=== PATIENT | female | born 1955 | race Two or more races ===

== ENCOUNTER 2017-04-30 11:36 | Outpatient (CLI) | payer OTHER ==
[~2017-04-30 11:36] MED LIST: ADVAIR 5001 DISK W/1; AMOX1TAB12 PO; CALTRATE 600600 MG; CLONAZEPAM1 MG PO; COLACE100 MG PO; IBUPROFEN800 MG PO; NEURONTIN800 MG PO; ORPH100T PO; PERCOCET 5-3251 EACH PO; SIMVASTATIN5 MG PO; TRAMADOL HCL50 MG PO; VASOTEC2.5 MG PO; VITAMIN D400 UNI2 PO; ZOCOR20 MG; ZYRTEC10 M3 PO; ZYRTEC10 MG
== END 2017-04-30 11:49 | disposition home or self-care (01) ==
LOC: RAD 11:36
DX: M51.36 Other intervertebral disc degeneration, lumbar region (principal); Z98.1 Arthrodesis status

== ENCOUNTER 2017-06-05 12:26 | Outpatient (CLI) | payer OTHER | END 2017-06-05 16:28 | disposition home or self-care (01) | LOC: MAMO-SONO 12:26 | DX: Z12.31 Encounter for screening mammogram for malignant neoplasm of breast (principal); Z87.898 Personal history of other specified conditions; N64.89 Other specified disorders of breast; N60.01 Solitary cyst of right breast; N60.02 Solitary cyst of left breast ==

== ENCOUNTER 2017-10-23 13:39 | Outpatient (CLI) | payer OTHER | END 2017-10-23 14:35 | disposition home or self-care (01) | LOC: NUCLEAR 13:39 | DX: M81.0 Age-related osteoporosis without current pathological fracture (principal) ==

== ENCOUNTER 2017-11-17 14:57 | Emergency (ER) | payer OTHER ==
[~2017-11-17] VITALS: Ht 149.9 cm; Wt 58.1 kg
== END 2017-11-17 19:38 | disposition home or self-care (01) ==
LOC: ER
DX: T78.3XXA Angioneurotic edema, initial encounter (principal); L53.8 Other specified erythematous conditions

== ENCOUNTER 2018-05-26 09:39 | Outpatient (CLI) | payer OTHER | END 2018-05-26 09:45 | disposition home or self-care (01) | LOC: TOM 09:39 | DX: R10.9 Unspecified abdominal pain (principal) ==

== ENCOUNTER → 2018-07-08 | Outpatient (CLI) | payer OTHER | END | disposition home or self-care (01) | LOC: RAD 501 11:15 | DX: M51.36 Other intervertebral disc degeneration, lumbar region (principal); Z98.1 Arthrodesis status ==

== ENCOUNTER 2019-06-14 09:53 | Emergency (ER) | payer OTHER ==
[~2019-06-14] VITALS: Ht 149.9 cm; Wt 49.4 kg
[2019-06-14] MEDS ORDERED: SINGULAIR10 MG (10:03)
== END 2019-06-14 14:48 | disposition home or self-care (01) ==
LOC: ER 09:53
DX: S80.02XA Contusion of left knee, initial encounter (principal); M25.562 Pain in left knee; W18.39XA Other fall on same level, initial encounter; Y93.89 Activity, other specified; Y92.89 Other specified places as the place of occurrence of the external cause; Y99.8 Other external cause status

== ENCOUNTER 2019-09-30 08:40 | Outpatient (CLI) | payer OTHER ==
[~2019-09-30 08:40] MED LIST changes: +SINGULAIR10 MG
== END 2019-09-30 08:48 | disposition home or self-care (01) ==
LOC: RAD 08:40
PROVIDERS: ATTEND Physical Medicine & Rehabilitation
DX: Z12.31 Encounter for screening mammogram for malignant neoplasm of breast (principal); N63.10 Unspecified lump in the right breast, unspecified quadrant; N63.20 Unspecified lump in the left breast, unspecified quadrant; M17.12 Unilateral primary osteoarthritis, left knee

== ENCOUNTER 2019-09-30 09:26 | Outpatient (CLI) | payer OTHER | END 2019-09-30 13:48 | disposition home or self-care (01) | LOC: LAB 09:26 | PROVIDERS: ATTEND Internal Medicine | DX: E78.49 Other hyperlipidemia (principal); I11.9 Hypertensive heart disease without heart failure; I12.9 Hypertensive chronic kidney disease with stage 1 through stage 4 chronic kidney disease, or unspecified chronic kidney disease; J44.9 Chronic obstructive pulmonary disease, unspecified; M54.5 Low back pain; M51.06 Intervertebral disc disorders with myelopathy, lumbar region; M81.0 Age-related osteoporosis without current pathological fracture; Z68.27 Body mass index [BMI] 27.0-27.9, adult; Z87.891 Personal history of nicotine dependence; E11.69 Type 2 diabetes mellitus with other specified complication ==

== ENCOUNTER 2019-11-09 11:40 | Outpatient (CLI) | payer OTHER | END 2019-11-09 12:51 | disposition home or self-care (01) | LOC: MRI 11:40 | PROVIDERS: ATTEND Physical Medicine & Rehabilitation | DX: M17.12 Unilateral primary osteoarthritis, left knee (principal) | CPT/HCPCS: 73718 ==

== ENCOUNTER 2020-08-10 10:13 | Outpatient (CLI) | payer OTHER | END 2020-08-10 10:19 | disposition home or self-care (01) | LOC: TOM 10:13 | PROVIDERS: ATTEND Internal Medicine | DX: G44.001 Cluster headache syndrome, unspecified, intractable (principal) ==

== ENCOUNTER 2020-08-25 14:38 | Outpatient (CLI) | payer OTHER | END 2020-08-25 14:45 | disposition home or self-care (01) | LOC: RAD 14:38 | PROVIDERS: ATTEND Internal Medicine | DX: C90.00 Multiple myeloma not having achieved remission (principal) ==

== ENCOUNTER 2020-09-26 10:42 | Outpatient (CLI) | payer OTHER | END 2020-09-26 15:00 | disposition home or self-care (01) | LOC: LAB 10:42 | PROVIDERS: ATTEND Radiology Diagnostic Radiology | DX: R41.3 Other amnesia (principal); Z51.81 Encounter for therapeutic drug level monitoring ==

== ENCOUNTER → 2020-10-03 | Outpatient (CLI) | payer OTHER | END | disposition home or self-care (01) | LOC: MRI 09:22 | PROVIDERS: ATTEND Neuromusculoskeletal Medicine & OMM | DX: R51.9 Headache, unspecified (principal); R41.3 Other amnesia; M51.26 Other intervertebral disc displacement, lumbar region; M51.36 Other intervertebral disc degeneration, lumbar region | CPT/HCPCS: 70553; 72148 ==

== ENCOUNTER → 2020-11-21 10:17 | Outpatient (CLI) | payer OTHER | END | disposition home or self-care (01) | LOC: LAB 10:17 | PROVIDERS: ATTEND Radiology Diagnostic Radiology | DX: I65.23 Occlusion and stenosis of bilateral carotid arteries (principal) ==

== ENCOUNTER 2020-12-05 09:27 | Outpatient (CLI) | payer OTHER | END 2020-12-05 09:33 | disposition home or self-care (01) | LOC: MRI 09:27 | PROVIDERS: ATTEND Neuromusculoskeletal Medicine & OMM | DX: I65.23 Occlusion and stenosis of bilateral carotid arteries (principal) | CPT/HCPCS: 70549; A9575 ==

== ENCOUNTER 2021-05-28 16:34 | Inpatient (IN) | payer OTHER ==
[~2021-05-28] VITALS: Ht 152.4 cm; Wt 50.8 kg
[2021-05-29] MEDS ORDERED: PREGABALIN75 MG (08:51)
[2021-05-29] MEDS ORDERED: PROCHLORPERAZIN10 MG (08:51)
[2021-05-29] MEDS ORDERED: XARELTO20 M1 (08:51)
[2021-05-29] MEDS ORDERED: PANTOPRAZOLE SO40 MG (08:51)
[2021-05-29] MEDS ORDERED: CLOPIDOGREL BIS75 MG (08:52)
[2021-05-29] MEDS ORDERED: PROAIR HFA8.5 GM (08:52)
[2021-06-03] MEDS ORDERED: PANTOPRAZOLE SO40 MG PO (11:41)
[2021-06-03] MEDS ORDERED: BUPROPION HCL150 M1 PO (11:42)
[2021-06-03] MEDS ORDERED: NICOTINE PATCH1 EACH TD (11:44)
== END 2021-06-03 12:51 | disposition home or self-care (01) | DRG 812 ==
LOC: ER 16:34 → ICU-2 22:52 → ICU 05-31 05:09 → MEDI 06-02 11:48
PROVIDERS: ADMIT Internal Medicine; ATTEND Internal Medicine
PROC: B24BZZZ Ultrasonography of Heart with Aorta (ICD-10-PCS; 2021-05-28)
PROC: 30233N1 Transfusion of Nonautologous Red Blood Cells into Peripheral Vein, Percutaneous Approach (ICD-10-PCS; principal; 2021-05-29)
PROC: 0DJ08ZZ Inspection of Upper Intestinal Tract, Via Natural or Artificial Opening Endoscopic (ICD-10-PCS; 2021-05-30)
PROC: 0DJD8ZZ Inspection of Lower Intestinal Tract, Via Natural or Artificial Opening Endoscopic (ICD-10-PCS; 2021-06-01)
PROC: 4A12X4Z Monitoring of Cardiac Electrical Activity, External Approach (ICD-10-PCS; 2021-06-02)
DX: D64.9 Anemia, unspecified (principal); K62.5 Hemorrhage of anus and rectum; K26.9 Duodenal ulcer, unspecified as acute or chronic, without hemorrhage or perforation; R10.13 Epigastric pain; I25.10 Atherosclerotic heart disease of native coronary artery without angina pectoris; I77.9 Disorder of arteries and arterioles, unspecified; I10 Essential (primary) hypertension; I73.89 Other specified peripheral vascular diseases; J44.9 Chronic obstructive pulmonary disease, unspecified; M51.37 Other intervertebral disc degeneration, lumbosacral region; Z20.822 Contact with and (suspected) exposure to COVID-19; Z79.01 Long term (current) use of anticoagulants; Z72.0 Tobacco use

== ENCOUNTER 2021-10-18 14:10 | Outpatient (CLI) | payer OTHER ==
[~2021-10-18 14:10] MED LIST changes: +BUPROPION HCL150 M1 PO; +CLOPIDOGREL BIS75 MG; +NICOTINE PATCH1 EACH TD; +PANTOPRAZOLE SO40 MG; +PANTOPRAZOLE SO40 MG PO; +PREGABALIN75 MG; +PROAIR HFA8.5 GM; +PROCHLORPERAZIN10 MG; +XARELTO20 M1
== END 2021-10-18 14:25 | disposition home or self-care (01) ==
LOC: PPH VACUNA 14:10
PROVIDERS: ATTEND Emergency Medicine Pediatric Emergency Medicine
DX: Z23 Encounter for immunization (principal)

== ENCOUNTER 2022-01-05 08:47 | Outpatient (CLI) | payer OTHER | END 2022-01-05 08:52 | disposition home or self-care (01) | LOC: SONOGRAMA 08:47 | PROVIDERS: ATTEND Internal Medicine | DX: M25.512 Pain in left shoulder (principal) ==

== ENCOUNTER 2022-01-08 08:55 | Outpatient (CLI) | payer OTHER | END 2022-01-08 08:57 | disposition home or self-care (01) | LOC: NUCLEAR 08:55 | PROVIDERS: ATTEND Internal Medicine | DX: I82.622 Acute embolism and thrombosis of deep veins of left upper extremity (principal) ==

== ENCOUNTER 2022-06-15 10:12 | Outpatient (CLI) | payer OTHER | END 2022-06-15 10:13 | disposition home or self-care (01) | LOC: NUCLEAR 10:12 | PROVIDERS: ATTEND Internal Medicine | DX: I73.9 Peripheral vascular disease, unspecified (principal) ==

== ENCOUNTER 2023-03-11 07:27 | Outpatient (CLI) | payer OTHER | END 2023-03-11 13:28 | disposition home or self-care (01) | LOC: TOM 07:27 | PROVIDERS: ATTEND Internal Medicine | DX: I70.213 Atherosclerosis of native arteries of extremities with intermittent claudication, bilateral legs (principal); E78.2 Mixed hyperlipidemia; I70.203 Unspecified atherosclerosis of native arteries of extremities, bilateral legs; I80.203 Phlebitis and thrombophlebitis of unspecified deep vessels of lower extremities, bilateral; E34.0 Carcinoid syndrome; G43.009 Migraine without aura, not intractable, without status migrainosus; E11.69 Type 2 diabetes mellitus with other specified complication; M81.0 Age-related osteoporosis without current pathological fracture; N18.2 Chronic kidney disease, stage 2 (mild); M06.4 Inflammatory polyarthropathy; J44.9 Chronic obstructive pulmonary disease, unspecified; M51.37 Other intervertebral disc degeneration, lumbosacral region; I11.9 Hypertensive heart disease without heart failure; M75.32 Calcific tendinitis of left shoulder; M65.812 Other synovitis and tenosynovitis, left shoulder; Z98.890 Other specified postprocedural states; K92.2 Gastrointestinal hemorrhage, unspecified; I65.23 Occlusion and stenosis of bilateral carotid arteries; I25.10 Atherosclerotic heart disease of native coronary artery without angina pectoris; J84.10 Pulmonary fibrosis, unspecified; I12.9 Hypertensive chronic kidney disease with stage 1 through stage 4 chronic kidney disease, or unspecified chronic kidney disease; N18.31 Chronic kidney disease, stage 3a; H25.11 Age-related nuclear cataract, right eye; R92.1 Mammographic calcification found on diagnostic imaging of breast; R97.0 Elevated carcinoembryonic antigen [CEA] | CPT/HCPCS: 74177; Q9965 ==

== ENCOUNTER → 2023-06-05 13:07 | Outpatient (CLI) | payer OTHER | END | disposition home or self-care (01) | LOC: NUCLEAR 13:07 | PROVIDERS: ATTEND Internal Medicine | DX: M81.0 Age-related osteoporosis without current pathological fracture (principal) ==

== ENCOUNTER 2024-02-19 12:50 | Outpatient (CLI) | payer OTHER | END 2024-02-19 13:00 | disposition home or self-care (01) | LOC: MAMO-SONO 12:50 | PROVIDERS: ATTEND Internal Medicine | DX: N64.4 Mastodynia (principal); R92.8 Other abnormal and inconclusive findings on diagnostic imaging of breast; Z12.31 Encounter for screening mammogram for malignant neoplasm of breast ==

== ENCOUNTER 2024-03-16 12:38 | Outpatient (CLI) | payer OTHER ==
[2024-03-16 14:28] LABS: CREATININE SERUM 1.47 mg/dL (0.55-1.02)
== END 2024-03-16 12:40 | disposition home or self-care (01) ==
LOC: LAB 12:38
PROVIDERS: ATTEND Radiology Diagnostic Radiology
DX: Z12.2 Encounter for screening for malignant neoplasm of respiratory organs (principal)

== ENCOUNTER 2024-03-23 07:17 | Outpatient (CLI) | payer OTHER | END 2024-03-23 07:23 | disposition home or self-care (01) | LOC: TOM 07:17 | PROVIDERS: ATTEND Internal Medicine | DX: Z12.2 Encounter for screening for malignant neoplasm of respiratory organs (principal); F17.210 Nicotine dependence, cigarettes, uncomplicated | CPT/HCPCS: 71260; Q9965 ==

== ENCOUNTER 2024-08-26 11:39 | Outpatient (CLI) | payer OTHER | END 2024-08-26 11:46 | disposition home or self-care (01) | LOC: TOM 11:39 | PROVIDERS: ATTEND Internal Medicine Pulmonary Disease | DX: J44.9 Chronic obstructive pulmonary disease, unspecified (principal); J84.9 Interstitial pulmonary disease, unspecified; H90.0 Conductive hearing loss, bilateral | CPT/HCPCS: 70551 ==

== ENCOUNTER 2024-09-05 08:54 | Inpatient (IN) | payer OTHER ==
[~2024-09-05] VITALS: Ht 152.4 cm; Wt 58.1 kg
--- NOTE | 2024-09-05 09:40 | NUR ---
PTE ALERTA Y ORIENTADA X3. REFIERE QUE ESTABA ESTA MANANA EN EL SUPERMERCADO REFIERE EMILIO PRESENTADO MAREOS Y PALPITACIONES. SE OSBALDO SV SPO2 91%, SE REALIZA EK EL CUAL SE PRESENTA A QUIEN ORDENA UBICAR EN LANCE 13 CONECTADA A MONITOR CARDIACO Y OXIMETRIA DE PULSO CONTINUA
[2024-09-05 10:39] LABS: BASO % 0.3 % (0.1-1.2); EOS # 0.01 (0.04-0.54); EOS % 0.1 % (0.7-7.0); HEMATOCRIT 37.1 % (34.1-44.9); HEMOGLOBIN 11.6 g/dL (11.2-15.7); LYMPH # 0.46 (1.18-3.74); LYMPH % 2.8 % (19.3-53.1); MEAN CORPUSCULAR HEMOGLOBIN 24.7 pg (25.6-32.2); MONO # 0.88 (0.24-0.82); MONO % 5.3 % (4.7-12.5); NEUT # 15.07 (1.56-6.13); NEUT % 90.7 % (34.0-71.1); PLATELET COUNT 229 K/uL (163-369)
[2024-09-05 11:01] LABS: INFLUENZA A AG NEGATIVE (NEGATIVE); INFLUENZA B AG NEGATIVE (NEGATIVE)
--- NOTE | 2024-09-05 11:09 | NUR ---
SE ORIENTA A PTE SOBRE TX MEDICO EL MISMO INDICA ENTENDER Y ACEPTAR, SE OSBALDO MUESTRAS DE LAB JOAO ORDEN MEDICA BAJO MEDIDAS ASEPTICAS.
[2024-09-05 11:25] LABS: ALBUMIN 3.6 gm/dL (3.4-5.0); BILIRUBIN TOTAL 0.47 mg/dL (0.3-1.2); CALCIUM 8.5 mg/dL (8.5-10.1); CREATININE SERUM 1.4 mg/dL (0.55-1.02); GFR 37.07; GLOBULINA 4.4 G/DL (2.4-3.5); POTASSIUM 4.65 mEq/L (3.5-5.1)
[2024-09-05 13:06] LABS: COVID-19 AG NEGATIVE (NEGATIVE)
[2024-09-05 16:02] LABS: BASO % 0.3 % (0.1-1.2); EOS # 0.02 (0.04-0.54); EOS % 0.1 % (0.7-7.0); HEMATOCRIT 35.7 % (34.1-44.9); HEMOGLOBIN 11.3 g/dL (11.2-15.7); LYMPH # 1.56 (1.18-3.74); LYMPH % 7.5 % (19.3-53.1); MEAN CORPUSCULAR HEMOGLOBIN 25.3 pg (25.6-32.2); MONO # 1.25 (0.24-0.82); NEUT # 17.83 (1.56-6.13); NEUT % 85.3 % (34.0-71.1); PLATELET COUNT 248 K/uL (163-369); RED BLOOD COUNT 4.47 M/uL (3.93-5.22)
[2024-09-05 17:20] LABS: PH,URINE 5.5 (5.0-8.0); URINE APPEARANCE Clear; URINE BACTERIA 315.7 uL (0.0-1933); URINE BILIRRUBIN Negative (NEGATIVE); URINE BLOOD Negative; URINE COLOR Yellow; URINE EPITHELIAL CELLS 12.9 uL (0.0-38.8); URINE GLUCOSE Negative (NEGATIVE); URINE KETONE Negative (NEGATIVE); URINE LEUKOCYTE Moderate; URINE NITRATE Negative; URINE PROTEIN Trace (NEGATIVE); URINE UROBILINOGEN 0.2 E.U./dl; URINE WBC 118.2 uL (0.0-23.2)
[2024-09-05 17:26] LABS: URINE CAST 0.29 uL (0.0-1.40); URINE RBC 0.8 uL (0.0-20.8)
[2024-09-05] MEDS ORDERED: CEFTRIAXONE SODIUM 1,000 MG VIAL IV ONE (18:15)
[2024-09-05] MEDS ORDERED: CEFTRIAXONE SODIUM 1,000 MG VIAL ONE (18:20)
[2024-09-05] MEDS ORDERED: IPRATROPIUM BROMIDE 0.5 MG/2.5 ML AMPUL.NEB IH SCH (19:35)
[2024-09-05] MEDS ORDERED: MONTELUKAST SODIUM 10 MG TABLET PO SCH (19:39)
[2024-09-05] MEDS ORDERED: CEFTRIAXONE SODIUM 2,000 MG in 0.9 % SODIUM CHLORIDE 100 ML IV SCH (19:39)
[2024-09-05] MEDS ORDERED: GABAPENTIN 800 MG TABLET PO SCH (19:40)
[2024-09-05] MEDS ORDERED: 0.9 % SODIUM CHLORIDE 1,000 ML IV SCH (19:45)
[2024-09-05] MEDS ORDERED: ONDANSETRON HCL 4 MG in 0.9 % SODIUM CHLORIDE 50 ML IV PRN (19:45)
[2024-09-05] MEDS ORDERED: ACETAMINOPHEN 500 MG GEL..CAP PO PRN (19:45)
[2024-09-05] MEDS ORDERED: LEVALBUTEROL HCL 1.25 MG/3 ML SOLUTION IH SCH (19:50)
[2024-09-05] MEDS ORDERED: METHYLPREDNISOLONE SOD SUCC 125 MG VIAL IV ONE (20:00)
[2024-09-05 22:13] LABS: ABG PH 7.395 (7.35-7.45)
[2024-09-05 22:14] LABS: ABG PO2 72.8 mmHg (80-100); ABG pCO2 38.2 mmHg (35-45); BASE EXCESS -2.6 mmol/l; BICARBONATE 21.7 mmol/l (23-25); SaO2 94.2 %; Tco2 22.8 mmol/l; allen test SATISFACTORY; mode ROOM AIR; o2 21 %; puncture site RADIAL LEFT
[2024-09-06 00:32] LABS: INR 1.04; PARTIAL THROMBOPLASTIN TIME 30.8 SECONDS (22.0-34.0); PROTHROMBIN TIME 11.3 SECONDS (9.0-11.5)
[2024-09-06 00:36] LABS: MAGNESIUM 1.9 mg/dL (1.8-2.4); PHOSPHOROUS 2.8 mg/dL (2.5-4.9)
[2024-09-06 00:42] LABS: C-REACTIVE PROTEIN 11.7 MG/DL (0.00-0.29)
[2024-09-06 01:37] VITALS: BP 130/80
[2024-09-06] MEDS ORDERED: BUPROPION HCL 150 MG TABLET.SA PO SCH (09:00)
[2024-09-06] MEDS ORDERED: BUDESONIDE 0.5 MG/2 ML AMPUL.NEB IH SCH (09:00)
[2024-09-06] MEDS ORDERED: ENOXAPARIN SODIUM 40 MG/0.4 ML SYRINGE SUBCUTANEO SCH (09:00)
[2024-09-06] MEDS ORDERED: FAMOTIDINE/PF 20 MG in 0.9 % SODIUM CHLORIDE 8 ML IV PUSH SCH (09:00)
[2024-09-06 09:04] VITALS: BP 147/85
[2024-09-06 17:00] VITALS: BP 146/61; O2SAT 100
[2024-09-06] MEDS ORDERED: SIMVASTATIN 10 MG TABLET PO SCH (17:00)
[2024-09-07 01:53] VITALS: BP 136/78; O2SAT 99
[2024-09-07] MEDS ORDERED: BENZONATATE 100 MG CAPSULE PO PRN (08:30)
[2024-09-07 08:34] LABS: BASO % 0.4 % (0.1-1.2); EOS % 0.9 % (0.7-7.0); HEMATOCRIT 32.9 % (34.1-44.9); HEMOGLOBIN 10.2 g/dL (11.2-15.7); LYMPH # 2.59 (1.18-3.74); LYMPH % 22.6 % (19.3-53.1); MEAN CORPUSCULAR HEMOGLOBIN 25.1 pg (25.6-32.2); MONO # 0.96 (0.24-0.82); MONO % 8.4 % (4.7-12.5); NEUT # 7.69 (1.56-6.13); NEUT % 67.2 % (34.0-71.1); PLATELET COUNT 165 K/uL (163-369); RED BLOOD COUNT 4.06 M/uL (3.93-5.22); RED CELL DISTRIBUTION WIDTH 16.2 % (11.6-14.4)
[2024-09-07 08:56] LABS: ALBUMIN 2.9 gm/dL (3.4-5.0); BILIRUBIN TOTAL 0.19 mg/dL (0.3-1.2); CALCIUM 8.4 mg/dL (8.5-10.1); CREATININE SERUM 0.98 mg/dL (0.55-1.02); GFR 55.94; GLOBULINA 3.8 G/DL (2.4-3.5); MAGNESIUM 1.9 mg/dL (1.8-2.4); POTASSIUM 5.48 mEq/L (3.5-5.1); TOTAL PROTEIN 6.7 gm/dL (6.4-8.2)
[2024-09-07 08:57] LABS: ERYTHROCYTE SEDIMENTATION RATE 48 mm/hr (0-30)
[2024-09-07 09:07] LABS: C-REACTIVE PROTEIN 8.83 MG/DL (0.00-0.29)
[2024-09-07 09:14] VITALS: BP 147/65; O2SAT 98
[2024-09-07 16:55] VITALS: BP 158/80; O2SAT 96
[2024-09-08 00:58] VITALS: BP 158/80
[2024-09-08 09:17] VITALS: BP 160/72; O2SAT 94
[2024-09-08 09:38] LABS: CREATININE SERUM 0.83 mg/dL (0.55-1.02); GFR 67.77; MAGNESIUM 1.9 mg/dL (1.8-2.4); POTASSIUM 4.89 mEq/L (3.5-5.1)
[2024-09-08] MEDS ORDERED: SIMVASTATIN10 MG PO (12:22)
[2024-09-08] MEDS ORDERED: WELLBUTRIN SR150 MG PO (12:22)
[2024-09-08] MEDS ORDERED: GABAPENTIN800 MG PO (12:23)
[2024-09-08] MEDS ORDERED: INTESTINEX680 M1 PO (12:23)
[2024-09-08] MEDS ORDERED: MONTELUKAST SOD10 MG PO (12:23)
[2024-09-08] MEDS ORDERED: LEVOFLOXACIN750 MG PO (12:23)
[2024-09-09] MEDS ORDERED: FAMOtidine 20 MG TABLET PO SCH (09:00)
== END 2024-09-08 13:30 | disposition home or self-care (01) | DRG 690 ==
LOC: ER 08:56 → MEDJ 21:43
PROVIDERS: Emergency Medicine; General Practice; Internal Medicine; ADMIT Internal Medicine; ATTEND Internal Medicine
PROC: 3E0F7GC Introduction of Other Therapeutic Substance into Respiratory Tract, Via Natural or Artificial Opening (ICD-10-PCS; principal; 2024-09-05)
DX: N39.0 Urinary tract infection, site not specified (principal); N17.9 Acute kidney failure, unspecified; J84.10 Pulmonary fibrosis, unspecified; D72.829 Elevated white blood cell count, unspecified; R09.02 Hypoxemia; J44.9 Chronic obstructive pulmonary disease, unspecified; I12.9 Hypertensive chronic kidney disease with stage 1 through stage 4 chronic kidney disease, or unspecified chronic kidney disease; N18.9 Chronic kidney disease, unspecified

== ENCOUNTER 2024-11-28 16:38 | Inpatient (IN) | payer OTHER ==
[~2024-11-28] VITALS: Ht 152.4 cm; Wt 54.9 kg
[~2024-11-28 16:38] MED LIST changes: +GABAPENTIN800 MG PO; +INTESTINEX680 M1 PO; +LEVOFLOXACIN750 MG PO; +MONTELUKAST SOD10 MG PO; +SIMVASTATIN10 MG PO; +WELLBUTRIN SR150 MG PO
[2024-11-28] MEDS ORDERED: IPRATROPIUM/ALBUTEROL SULFATE 3 ML AMPUL.NEB IH SCH (17:45)
[2024-11-28] MEDS ORDERED: METHYLPREDNISOLONE SOD SUCC 125 MG VIAL IV STA (17:46)
[2024-11-28] MEDS ORDERED: 0.9 % SODIUM CHLORIDE 1,000 ML IV STA (17:49)
[2024-11-28 18:10] LABS: BASO % 0.7 % (0.1-1.2); EOS # 0.02 (0.04-0.54); EOS % 0.2 % (0.7-7.0); LYMPH # 0.87 (1.18-3.74); LYMPH % 7.1 % (19.3-53.1); MEAN PLATELET VOLUME 9.60 fl (9.4-12.4); MONO # 1.03 (0.24-0.82); MONO % 8.4 % (4.7-12.5); NEUT # 10.25 (1.56-6.13); NEUT % 83.2 % (34.0-71.1); RED CELL DISTRIBUTION WIDTH 17.2 % (11.6-14.4)
[2024-11-28 18:27] LABS: COVID-19 AG POSITIVE (NEGATIVE)
[2024-11-28 18:45] LABS: URINE APPEARANCE Clear; URINE BILIRRUBIN Negative (NEGATIVE); URINE BLOOD Trace; URINE COLOR Yellow; URINE KETONE Negative (NEGATIVE); URINE LEUKOCYTE Negative; URINE NITRATE Negative; URINE UROBILINOGEN 0.2 E.U./dl
[2024-11-28 18:49] LABS: URINE BACTERIA 164.4 uL (0.0-1933); URINE EPITHELIAL CELLS 21.3 uL (0.0-38.8); URINE RBC 5.5 uL (0.0-20.8); URINE WBC 9.0 uL (0.0-23.2)
[2024-11-28 19:16] LABS: INR 1.01
[2024-11-28 19:23] LABS: ALT/SGPT 25.0 U/L (12-78); AST/SGOT 31.0 U/L (15-37); BILIRUBIN TOTAL 0.4 mg/dL (0.3-1.2); BUN CREA RATIO 20.0 (7.0-25.0); CREATININE SERUM 0.89 mg/dL (0.55-1.02); GFR 62.52; GLOBULINA 4.2 G/DL (2.4-3.5); GLUCOSE FASTING 173.0 mg/dL (65-100); OSMOLALITY SERUM 289.0 MOSM/KG (275-295)
[2024-11-28 19:50] LABS: TYPE CELLS SQUAMOUS; URINE CAST 0.29 uL (0.0-1.40); URINE GLUCOSE 100 MG/DL (NEGATIVE); URINE PROTEIN 300 (NEGATIVE)
[2024-11-28 20:59] LABS: ABG PH 7.344 (7.35-7.45); ABG PO2 89.5 mmHg (80-100); BICARBONATE 21.7 mmol/l (23-25)
[2024-11-28 21:25] LABS: o2 28 %
[2024-11-28 21:44] VITALS: BP 134/57; O2SAT 100
[2024-11-28] MEDS ORDERED: IPRATROPIUM BROMIDE 0.5 MG/2.5 ML AMPUL.NEB IH SCH (22:13)
[2024-11-28] MEDS ORDERED: 0.9 % SODIUM CHLORIDE 1,000 ML IV SCH (22:15)
[2024-11-28] MEDS ORDERED: ENOXAPARIN SODIUM 40 MG/0.4 ML SYRINGE SUBCUTANEO SCH (22:18)
[2024-11-28] MEDS ORDERED: CEFTRIAXONE SODIUM 2,000 MG in 0.9 % SODIUM CHLORIDE 100 ML IV SCH (22:19)
[2024-11-28] MEDS ORDERED: ENALAPRIL MALEATE 2.5 MG TABLET PO SCH (22:19)
[2024-11-28] MEDS ORDERED: MONTELUKAST SODIUM 10 MG TABLET PO SCH (22:19)
[2024-11-28] MEDS ORDERED: AZITHROMYCIN 500 MG in DEXTROSE 5 % IN WATER 250 ML IV SCH (22:19)
[2024-11-28] MEDS ORDERED: GABAPENTIN 800 MG TABLET PO SCH (22:21)
[2024-11-28] MEDS ORDERED: DEXAMETHASONE SODIUM PHOSPHATE 4 MG/ML VIAL IV SCH (22:21)
[2024-11-28] MEDS ORDERED: ASPIRIN 325 MG TABLET PO ONE (22:30)
[2024-11-28] MEDS ORDERED: ACETAMINOPHEN 500 MG GEL..CAP PO PRN (22:30)
[2024-11-28 22:50] VITALS: BP 133/60; O2SAT 99
[2024-11-29] VITALS (21 sets, daily range): BP systolic 94–152; BP diastolic 46–93; O2SAT 94–100
[2024-11-29 00:48] LABS: LDH 191.0 U/L (84-246)
[2024-11-29] MEDS ORDERED: NITROGLYCERIN IN 5 % DEXTROSE 250 ML IV SCH ×2 (01:15→07:15)
[2024-11-29] MEDS ORDERED: ASPIRIN 81 MG TAB.CHEW PO SCH (09:00)
[2024-11-29] MEDS ORDERED: ZINC SULFATE 220 MG CAPSULE PO SCH (10:28)
[2024-11-29] MEDS ORDERED: ASCORBIC ACID 500 MG TABLET PO SCH (10:30)
[2024-11-29] MEDS ORDERED: CLOPIDOGREL BISULFATE 75 MG TABLET PO SCH (10:36)
[2024-11-29] MEDS ORDERED: BUDESONIDE 0.5 MG/2 ML AMPUL.NEB IH SCH (10:37)
[2024-11-29 12:40] LABS: D DIMER 0.84 MG/L
[2024-11-29 12:48] LABS: PHOSPHOKINASE CREATININE 131.0 U/L (26-192)
[2024-11-29 13:12] LABS: LDH 205.0 U/L (84-246)
[2024-11-29 13:29] LABS: CKMB 20.4 NG/ML (0.5-3.6)
[2024-11-29] MEDS ORDERED: REMDESIVIR 100 MG VIAL IV ONE (14:00)
[2024-11-29] MEDS ORDERED: SIMVASTATIN 20 MG TABLET PO SCH (17:00)
[2024-11-29] MEDS ORDERED: ENOXAPARIN SODIUM 40 MG/0.4 ML SYRINGE SUBCUTANEO SCH (17:00)
[2024-11-29 18:51] LABS: LDH 372.0 U/L (84-246)
[2024-11-29 19:08] LABS: CKMB 16.5 NG/ML (0.5-3.6)
[2024-11-29] MEDS ORDERED: AZITHROMYCIN 500 MG in DEXTROSE 5 % IN WATER 250 ML IV SCH (21:00)
[2024-11-29] MEDS ORDERED: MELATONIN 5 MG TABLET PO SCH (21:00)
[2024-11-29] MEDS ORDERED: CEFTRIAXONE SODIUM 2,000 MG in 0.9 % SODIUM CHLORIDE 100 ML IV SCH (21:00)
[2024-11-30] VITALS (17 sets, daily range): BP systolic 134–179; BP diastolic 58–82; O2SAT 96–100
[2024-11-30 07:50] LABS: INR 1.0
[2024-11-30 08:53] LABS: CHOL HDL RATIO 4.0 (0-5.0); HDL 38 mg/dl (40-60); LDL 87 mg/dl (0-130); VLDL 27 (0-39)
[2024-11-30 08:54] LABS: ALT/SGPT 19 U/L (12-78); AST/SGOT 26 U/L (15-37); BILIRUBIN TOTAL 0.21 mg/dL (0.3-1.2); BILIRUBIN,CONJUGATED < 0.10 mg/dL (0.0-0.2); T4 FREE 0.74 NG/ML (0.76-1.46); TSH 1.340 uIU/mL (0.358-3.74)
[2024-11-30] MEDS ORDERED: DEXAMETHASONE SODIUM PHOSPHATE 4 MG/ML VIAL IV SCH (09:00)
[2024-11-30] MEDS ORDERED: THIAMINE HCL 100 MG TABLET PO SCH (09:00)
[2024-11-30] MEDS ORDERED: FAMOTIDINE/PF 20 MG/2 ML VIAL IV SCH (10:26)
[2024-11-30 11:35] LABS: BASO % 0.1 % (0.1-1.2); EOS # 0.01 (0.04-0.54); EOS % 0.1 % (0.7-7.0); LYMPH # 1.41 (1.18-3.74); LYMPH % 10.4 % (19.3-53.1); MEAN PLATELET VOLUME 9.90 fl (9.4-12.4); MONO # 0.80 (0.24-0.82); MONO % 5.9 % (4.7-12.5); NEUT # 11.21 (1.56-6.13); NEUT % 83.1 % (34.0-71.1); RED CELL DISTRIBUTION WIDTH 17.6 % (11.6-14.4)
[2024-11-30] MEDS ORDERED: ALBUTEROL SULFATE 3 ML/2.5 MG AMPUL.NEB IH SCH (12:00)
[2024-11-30 12:44] LABS: BUN CREA RATIO 22.0 (7.0-25.0); CREATININE SERUM 0.86 mg/dL (0.55-1.02); GFR 65.05; GLUCOSE FASTING 123.0 mg/dL (65-100); OSMOLALITY SERUM 289.0 MOSM/KG (275-295)
[2024-11-30 12:45] LABS: ALT/SGPT 19.0 U/L (12-78); AST/SGOT 26.0 U/L (15-37); BILIRUBIN TOTAL 0.25 mg/dL (0.3-1.2); GLOBULINA 3.6 G/DL (2.4-3.5)
[2024-11-30] MEDS ORDERED: IPRATROPIUM BROMIDE 0.5 MG/2.5 ML AMPUL.NEB IH SCH (14:00)
[2024-11-30] MEDS ORDERED: BENZONATATE 100 MG CAPSULE PO PRN (15:45)
[2024-11-30] MEDS ORDERED: REMDESIVIR 100 MG VIAL IV SCH (17:00)
[2024-11-30] MEDS ORDERED: NAPH,MB-DB/K PH,MBDB 1 PKT PACKET PO SCH (17:07)
[2024-11-30] MEDS ORDERED: MAGNESIUM CHLORIDE 70 MG TABLET.DR PO SCH (17:08)
[2024-11-30] MEDS ORDERED: AMINO ACIDS/PROTEIN HYDROLYS 30 ML BLIST.PACK PO SCH (17:09)
[2024-11-30] MEDS ORDERED: IRON FUM,PS/FOLIC/BCOMP,C NO.9 1 CAP CAPSULE PO SCH (17:09)
[2024-11-30] MEDS ORDERED: Cyanocobalamin/Mecobalamin 1 TAB.SL SL SCH (17:29)
[2024-12-01] VITALS (7 sets, daily range): BP systolic 102–134; BP diastolic 47–73; O2SAT 98–100
[2024-12-01 07:05] LABS: BASO % 0.2 % (0.1-1.2); EOS # 0.00 (0.04-0.54); EOS % 0.0 % (0.7-7.0); LYMPH # 2.14 (1.18-3.74); LYMPH % 20.8 % (19.3-53.1); MEAN PLATELET VOLUME 10.30 fl (9.4-12.4); MONO # 0.70 (0.24-0.82); MONO % 6.8 % (4.7-12.5); NEUT # 7.38 (1.56-6.13); NEUT % 71.7 % (34.0-71.1); RED CELL DISTRIBUTION WIDTH 17.2 % (11.6-14.4)
[2024-12-01 07:59] LABS: PHOSPHOKINASE CREATININE 60.0 U/L (26-192)
[2024-12-01 08:23] LABS: ALT/SGPT 17.0 U/L (12-78); AST/SGOT 16.0 U/L (15-37); BILIRUBIN TOTAL 0.16 mg/dL (0.3-1.2); BUN CREA RATIO 27.0 (7.0-25.0); CREATININE SERUM 0.64 mg/dL (0.55-1.02); GFR 91.47; GLOBULINA 3.7 G/DL (2.4-3.5); GLUCOSE FASTING 80.0 mg/dL (65-100); OSMOLALITY SERUM 289.0 MOSM/KG (275-295)
[2024-12-01] MEDS ORDERED: MULTIVIT-MIN/IRON FUM/FOLIC AC 1 TAB TABLET PO SCH (09:00)
[2024-12-01] MEDS ORDERED: POTASSIUM BICARBONATE/CIT AC 25 MEQ TABLET.EFF PO NR (10:45)
[2024-12-01] MEDS ORDERED: METOPROLOL SUCCINATE 25 MG TAB.SR.24H PO NR (10:50)
[2024-12-01] MEDS ORDERED: MAGNESIUM SULFATE IN WATER 50 ML IV NR (12:00)
[2024-12-02] VITALS (9 sets, daily range): BP systolic 121–151; BP diastolic 60–71; O2SAT 90–100
[2024-12-02 07:03] LABS: ALT/SGPT 23.0 U/L (12-78); AST/SGOT 25.0 U/L (15-37); BILIRUBIN TOTAL 0.18 mg/dL (0.3-1.2); BUN CREA RATIO 43.0 (7.0-25.0); CREATININE SERUM 0.7 mg/dL (0.55-1.02); GFR 82.49; GLOBULINA 3.3 G/DL (2.4-3.5); GLUCOSE FASTING 109.0 mg/dL (65-100); OSMOLALITY SERUM 292.0 MOSM/KG (275-295)
[2024-12-02 07:11] LABS: BASO % 0.1 % (0.1-1.2); EOS # 0.00 (0.04-0.54); EOS % 0.0 % (0.7-7.0); LYMPH # 2.56 (1.18-3.74); LYMPH % 27.0 % (19.3-53.1); MEAN PLATELET VOLUME 11.90 fl (9.4-12.4); MONO # 0.80 (0.24-0.82); MONO % 8.4 % (4.7-12.5); NEUT # 6.06 (1.56-6.13); NEUT % 64.1 % (34.0-71.1); RED CELL DISTRIBUTION WIDTH 17.5 % (11.6-14.4)
[2024-12-02] MEDS ORDERED: METOPROLOL SUCCINATE 25 MG TAB.SR.24H PO SCH (09:00)
[2024-12-03] VITALS (8 sets, daily range): BP systolic 122–167; BP diastolic 60–72; O2SAT 94–100
[2024-12-03] MEDS ORDERED: GUAIFENESIN 600 MG TABLET.SA PO SCH (09:00)
[2024-12-03] MEDS ORDERED: ENOXAPARIN SODIUM 40 MG/0.4 ML SYRINGE SUBCUTANEO SCH (09:00)
[2024-12-03] MEDS ORDERED: IPRATROPIUM BROMIDE 0.5 MG/2.5 ML AMPUL.NEB IH SCH (12:00)
[2024-12-03 14:03] LABS: PHOSPHOKINASE CREATININE 36.0 U/L (26-192)
[2024-12-04 00:04] VITALS: O2SAT 97
[2024-12-04 01:28] VITALS: BP 125/72; O2SAT 96
[2024-12-04 06:46] LABS: BASO % 0.2 % (0.1-1.2); EOS # 0.00 (0.04-0.54); EOS % 0.0 % (0.7-7.0); LYMPH # 3.21 (1.18-3.74); LYMPH % 27.0 % (19.3-53.1); MEAN PLATELET VOLUME 10.90 fl (9.4-12.4); MONO # 0.88 (0.24-0.82); MONO % 7.4 % (4.7-12.5); NEUT # 7.63 (1.56-6.13); NEUT % 64.1 % (34.0-71.1); RED CELL DISTRIBUTION WIDTH 17.6 % (11.6-14.4)
[2024-12-04 07:11] LABS: ALT/SGPT 28.0 U/L (12-78); AST/SGOT 21.0 U/L (15-37); BILIRUBIN TOTAL 0.2 mg/dL (0.3-1.2); BUN CREA RATIO 50.0 (7.0-25.0); CREATININE SERUM 0.82 mg/dL (0.55-1.02); GFR 68.72; GLOBULINA 4.1 G/DL (2.4-3.5); GLUCOSE FASTING 94.0 mg/dL (65-100); OSMOLALITY SERUM 293.0 MOSM/KG (275-295)
[2024-12-04 09:43] VITALS: BP 160/73; O2SAT 97
[2024-12-04 09:52] VITALS: O2SAT 90
[2024-12-04 13:41] VITALS: O2SAT 96
[2024-12-04] MEDS ORDERED: ALBUTEROL2.5 MG/3 M IH (15:58)
[2024-12-04] MEDS ORDERED: INTEGRA PLUS C1 EACH PO (15:59)
[2024-12-04] MEDS ORDERED: IPRATROPIU0.2 MG/1 M IH (15:59)
[2024-12-04] MEDS ORDERED: SIMVASTATIN20 MG PO (15:59)
[2024-12-04] MEDS ORDERED: CLOPIDOGREL BIS75 MG PO (15:59)
[2024-12-04] MEDS ORDERED: ENALAPRIL MALEAT5 MG PO (15:59)
[2024-12-04] MEDS ORDERED: TOPROL XL25 M1 PO (15:59)
[2024-12-04] MEDS ORDERED: FAMOTIDINE20 MG PO (16:00)
[2024-12-04] MEDS ORDERED: MONTELUKAST SOD10 MG PO (16:00)
[2024-12-04] MEDS ORDERED: MULTIVITAMIN-M1 EACH PO (16:00)
[2024-12-04] MEDS ORDERED: GABAPENTIN800 MG PO (16:00)
[2024-12-04] MEDS ORDERED: ADULT ASPIRIN81 MG PO (16:00)
[2024-12-04] MEDS ORDERED: MEDROLPACK PO (16:01)
[2024-12-04 17:31] VITALS: BP 161/74
[2024-12-05] MEDS ORDERED: ENALAPRIL MALEATE 10 MG TABLET PO SCH (09:00)
[2024-12-05] MEDS ORDERED: ENALAPRIL MALEATE 5 MG TABLET PO SCH (09:00)
== END 2024-12-04 17:52 | disposition home or self-care (01) | DRG 177 ==
LOC: ER 16:38 → ICU-2 22:33 → SEC-K 12-01 08:02 → MEDJ 12-01 08:05
PROVIDERS: General Practice; Internal Medicine; ADMIT Internal Medicine; ATTEND Internal Medicine
PROC: BB24ZZZ Computerized Tomography (CT Scan) of Bilateral Lungs (ICD-10-PCS; 2024-11-28)
PROC: B246ZZZ Ultrasonography of Right and Left Heart (ICD-10-PCS; 2024-11-28)
PROC: 3E0F7SF Introduction of Other Gas into Respiratory Tract, Via Natural or Artificial Opening (ICD-10-PCS; 2024-11-28)
PROC: 0T9B70Z Drainage of Bladder with Drainage Device, Via Natural or Artificial Opening (ICD-10-PCS; 2024-11-28)
PROC: 8E0ZXY6 Isolation (ICD-10-PCS; principal; 2024-11-29)
PROC: XW033E5 Introduction of Remdesivir Anti-infective into Peripheral Vein, Percutaneous Approach, New Technology Group 5 (ICD-10-PCS; 2024-11-29)
PROC: 3E0F7GC Introduction of Other Therapeutic Substance into Respiratory Tract, Via Natural or Artificial Opening (ICD-10-PCS; 2024-11-29)
PROC: 4A12X4Z Monitoring of Cardiac Electrical Activity, External Approach (ICD-10-PCS; 2024-12-01)
DX: U07.1 COVID-19 (principal); I21.A1 Myocardial infarction type 2; J12.82 Pneumonia due to coronavirus disease 2019; J44.1 Chronic obstructive pulmonary disease with (acute) exacerbation; N39.0 Urinary tract infection, site not specified; D64.9 Anemia, unspecified; J84.10 Pulmonary fibrosis, unspecified; I73.9 Peripheral vascular disease, unspecified; I11.9 Hypertensive heart disease without heart failure; I25.10 Atherosclerotic heart disease of native coronary artery without angina pectoris; F17.210 Nicotine dependence, cigarettes, uncomplicated; E78.5 Hyperlipidemia, unspecified
CPT/HCPCS: 71250; 93306; 93228; 94640; 51702; J0248